=== PATIENT | female | born 1995 | race Caucasian/White ===

== ENCOUNTER → 2022-12-21 | Outpatient (CLI) | payer OTHER ==
[2022-12-21 16:49] LABS: Basophils # (A) 0.11 X 10*3/uL (0.00-0.10); Basophils % (A) 1.4 %; Eosinophils # (A) 0.27 X 10*3/uL (0.04-0.35); Eosinophils % (A) 3.5 %; HCT 45.5 % (37.2-46.3); HGB 14.6 g/dL (12.0-15.0); Lymphocytes # (A) 2.04 X 10*3/uL (0.90-5.00); Lymphocytes % (A) 26.3 %; MCH 29.1 pg (27.0-32.0); MCHC 32.1 g/dL (32.0-37.0); MCV 90.6 FL (80.0-97.0); Mean Platelet Volume 12.2 FL (9.5-12.2); Monocytes # (A) 0.74 X 10*3/uL (0.20-1.00); Monocytes % (A) 9.5 %; NRBC Per 100 WBC 0 X 10*3/uL (0.00-0.01); Neutrophils # (A) 4.58 X 10*3/uL (1.80-7.70); Neutrophils % (A) 58.9 %; Platelet Count 140 X 10*3/uL (140-440); RBC 5.02 X 10*6/uL (4.10-5.20); RDW 13.2 % (11.5-14.5); WBC 7.77 X 10*3/uL (4.50-10.00)
== END | disposition home or self-care (01) ==
LOC: LABPAT 10:22
PROVIDERS: ATTEND Obstetrics & Gynecology
DX: Z01.812 Encounter for preprocedural laboratory examination (principal); D06.9 Carcinoma in situ of cervix, unspecified
CPT/HCPCS: 36415; 85025

== ENCOUNTER → 2022-12-29 | Day surgery (SDC) | payer OTHER ==
--- NOTE | 2022-12-28 16:00 | HP ---
HISTORY AND PHYSICAL HISTORY OF PRESENT ILLNESS: The patient is a 27-year-old 1, para 1-0-0-1, who was sent on referral for an abnormal Pap smear and underwent colposcopically-directed biopsies demonstrating ASHISH 2 to 3 on both ectocervical and endocervical biopsies. As a result, she has been recommended to undergo cold knife cone of the cervix. PAST MEDICAL HISTORY: Significant for the abnormal Pap smear as noted above. She additionally has a history of nephrolithiasis. PAST SURGICAL HISTORY: None. OBSTETRICAL HISTORY: 1, para 1-0-0-1 with 1 normal spontaneous vaginal delivery without complications. She is currently not using any specific form of control. GYNECOLOGIC HISTORY: Unremarkable with no history of any infections to include STDs and is otherwise confined to history of present illness. FAMILY HISTORY: Noncontributory. 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 She is a nonsmoker and reports occasional alcohol. CURRENT MEDICATIONS: Include only ibuprofen as needed. ALLERGIES: No known drug allergies. REVIEW OF SYSTEMS: Confined to history of present illness. PHYSICAL EXAMINATION: VITAL SIGNS: Stable. The patient is afebrile. GENERAL: This is a well-developed and well-nourished white female, in no acute distress. HEART: Has a regular rhythm and rate without murmur. LUNGS: Clear to auscultation bilaterally in all serrano. ABDOMEN: Nondistended, has normoactive bowel sounds, soft, nontender, without any palpable masses, hepatosplenomegaly, or hernias. EXTREMITIES: Without any cyanosis, clubbing, or edema and are nontender to palpation bilaterally. PELVIC: Deferred to the operating room. 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 I have discussed the risks and complications of cold knife conization of the cervix at some length including the risk for bleeding, bleeding requiring transfusion, and injury to local structures which specifically would include cervical stenosis and/or incompetence. She has understood all this and has agreed to proceed. We are scheduled for the morning of Sunday, 12/29, for the procedure as outlined above. MMODL / IJN: [id number] /
[~2022-12-29] MED LIST: ACETAMINOPHEN IV (For NPO) 1,000 MG/100 ML VIAL IVPB ONE; ACETAMINOPHEN TAB 325 MG TAB PO PRN; Acetaminophen-Codeine 300-30mg TAB PO PRN; DEXAMETHASONE SOD PHOSPHATE 4 MG/ML 1 ML VIAL IV ONE; HYDROmorphone 0.5 MG/0.5 ML SYRINGE IVP PRN; IBUPROFEN 600 MG TAB PO PRN; IODINE/POTASSIUM IODIDE 14 ML BOTTLE TOPICAL ONE; KETOROLAC 15 MG/ML 1 ML VIAL IVP PRN; KETOROLAC 15 MG/ML 1 ML VIAL ONE; LACTATED RINGERS 1,000 ML IV SCH; LIDOCAINE 1% (10MG/ML) FOR IV START INTRADERMA PRN; LIDOCAINE 1% INJ 10MG/ML (20 ML MDV) ONE; METOCLOPRAMIDE 5 MG/ML 2 ML VIAL IVP PRN; MIDAZOLAM 2 MG/2 ML VIAL IV PRN; MIDAZOLAM 2 MG/2 ML VIAL ONE; ONDANSETRON 4 MG/2 ML VIAL IVP ONE; ONDANSETRON 4 MG/2 ML VIAL IVP PRN; PROPOFOL 10 MG/ML 20 ML VIAL IV ONE; Pre Op ABX Message 1 EACH MISC MISCELLANE ONE; SIMETHICONE 80 MG CHEWABLE PO PRN; diphenhydrAMINE 50 MG/ML 1 ML VIAL IVP PRN; fentaNYL (PF) 50 MCG/ML 2 ML AMP ONE
[2022-12-29 07:51] VITALS: RESP 16
--- NOTE | 2022-12-29 09:28 | P.OP ---
Date of Procedure: 12/29/22 Preoperative Diagnosis: #1. ASHISH 3, ectocervical and endocervical Postoperative Diagnosis: Same Procedure(s) Performed: #1. Cold knife cervical cone Anesthesia: ELSIEA Surgeon: Pelon Vo Estimated Blood Loss (ml): 25 IV fluids (ml): 400 Urine output (ml): 20 Pathology: other (Cervical cone) Condition: stable Disposition: PACU Operative Findings: Intraoperatively, there was a large nonstaining area at approximate 6:00 on the cervix which was entirely included with the specimen. The cone was taken to a depth of approximately 1-1/2-2 cm and the diameter of the cone was approximately 1-1-1/2 cm. Description of Procedure: The patient was prepped and draped in usual fashion after general anesthesia was administered by the anesthesiologist. Weighted speculum placed and the bladder draining approximately 20 mL of clear betito urine. The anterior lip of the cervix was grasped with a single-tooth tenaculum and surgical stay sutures were placed from 2:00 to 4:00 and 10:00 to 8:00 at the cervicovaginal junction into the body of the cervix using 0 Vicryl and firmly tied down bilaterally. The tenaculum was released and the cervix was stained with Lugol strong iodine. The nonstaining area was clearly a linear needed at 6:00. A uterine sound was placed through the cervix to the fundus and a scalpel utilized to cut to a depth of approximate 1/2-2 cm on the ectocervix including all of the nonstaining tissue. The sound was removed and the cone grasped with an Allis clamp and it was removed at its base. The cone bed was then cauterized thoroughly. Once hemostasis was relatively good, surgical powder was applied which affected excellent hemostasis. The stay sutures were left in place but trimmed short and Allis her mentation was removed. Estimated blood loss for the case was approx imately 25 mL. There were no complications. All sponge, instrument, needle counts were correct. The patient tolerated the procedure well and proceeded to the recovery room in stable condition.
[2022-12-29 10:02] VITALS: TEMP 97.4
[2022-12-29 11:48] VITALS: BP 114/62; PULSE 55
== END | disposition home or self-care (01) ==
LOC: OR 07:13
PROVIDERS: ATTEND Obstetrics & Gynecology
DX: D06.9 Carcinoma in situ of cervix, unspecified (principal); Z79.1 Long term (current) use of non-steroidal anti-inflammatories (NSAID); Z87.442 Personal history of urinary calculi
CPT/HCPCS: 81025; 57522; J2250; J1100; J2405; J2001; J3010; J0131; J1885; J2704; 88307